=== PATIENT | male | born 1945 | race Caucasian/White ===

== ENCOUNTER 2017-10-16 10:25 | Inpatient (IN) | payer MEDICARE, OTHER ==
[~2017-10-16] VITALS: Ht 172.7 cm; Wt 81.6 kg
[~2017-10-16 10:25] MED LIST: BUPIVACAINE/PF 0.5% ONE; EPINEPHRINE 1 MG/ML, 1ML ONE; INDOCYANINE GREEN 25 MG VIAL ONE
[2017-10-16 10:50] VITALS: BP 146/93
[2017-10-16] MEDS ORDERED: LACTATED RINGERS 1,000 ML IV SCH (10:52)
[2017-10-16] MEDS ORDERED: PLEASE ENTER HEIGHT AND WEIGHT MC SCH (11:00)
[2017-10-16] MEDS ORDERED: WARF2TAB PO (11:20)
[2017-10-16] MEDS ORDERED: WARF4TAB PO (11:20)
[2017-10-16] MEDS ORDERED: METO25TA91 PO (11:20)
[2017-10-16 11:58] LABS: BASOPHILS # (AUTO) 0.04 x10^3/uL (0-0.1); BASOPHILS % (AUTO) 1 % (0-1); EOSINOPHILS # (AUTO) 0.07 x10^3/uL (0-0.4); EOSINOPHILS % (AUTO) 1 % (1-7); LYMPHOCYTES # (AUTO) 1.31 x10^3/uL (1-3.4); LYMPHOCYTES % (AUTO) 14 % (22-44); MD NO; MEAN CORPUSCULAR HEMOGLOBIN 24.1 pg (27.5-34.5); MEAN CORPUSCULAR HGB CONC 32.4 g/dL (33.2-36.2); MEAN CORPUSCULAR VOLUME 74.3 fL (81-97); MEAN PLATELET VOLUME 10.3 fL (7.4-10.4); MONOCYTES # (AUTO) 0.73 x10^3/uL (0.2-0.8); MONOCYTES % (AUTO) 8 % (2-9); NEUTROPHILS # (AUTO) 7.09 x10^3/uL (1.8-6.8); NEUTROPHILS % (AUTO) 77 % (42-75); PLATELET COUNT 315 x10^3/uL (130-400); RED BLOOD COUNT 5.92 x10^6/uL (4.38-5.82); RED CELL DISTRIBUTION WIDTH 17.5 % (9.4-14.8)
[2017-10-16 12:01] LABS: INTERNATIONAL NORMALIZED RATIO 1.1 (0.93-1.1); PROTHROMBIN TIME 11.4 Seconds (9.6-11.5)
[2017-10-16 12:04] LABS: ALANINE AMINOTRANSFERASE 14 U/L (12-78); ALBUMIN 3.7 g/dL (3.4-5.0); ANION GAP 8 mmol/L (5-15); CALCIUM 9.2 mg/dL (8.5-10.1); CHLORIDE 108 mmol/L (98-107); CREATININE 1.16 mg/dL (0.7-1.3)
[2017-10-16 12:06] LABS: ALKALINE PHOSPHATASE 91 U/L (45-117); BILIRUBIN,TOTAL 1.5 mg/dL (0.2-1.0); TOTAL PROTEIN 7.8 g/dL (6.4-8.2)
[2017-10-16] MEDS ORDERED: FENTANYL PF 250 MCG/5ML ONE (15:15)
[2017-10-16] MEDS ORDERED: MIDAZOLAM 1 MG/ML, 2ML ONE (15:15)
[2017-10-16] MEDS ORDERED: PROPOFOL 10 MG/ML, 20ML ONE (16:42)
[2017-10-16] MEDS ORDERED: SUCCINYLCHOLINE 20 MG/ML, 10ML ONE (16:42)
[2017-10-16] MEDS ORDERED: ROCURONIUM 10 MG/ML,10ML ONE (16:42)
[2017-10-16] MEDS ORDERED: NEOSTIGMINE 1 MG/ML, 10ML ONE (16:42)
[2017-10-16] MEDS ORDERED: LABETALOL 5MG/ML, 20ML ONE (16:42)
[2017-10-16] MEDS ORDERED: GLYCOPYRROLATE 0.2MG/1ML, 5ML ONE (16:42)
[2017-10-16] MEDS ORDERED: CEFOTETAN 2 GM ONE (16:42)
[2017-10-16] MEDS ORDERED: LABETALOL 5MG/ML, 20ML IV PRN (17:00)
[2017-10-16] MEDS ORDERED: OXYcodone 5 MG/5 ML ORAL.SOL UDC PO PRN (17:00)
[2017-10-16] MEDS ORDERED: ACETAMINOPHEN 325 MG TABLET PO PRN (17:00)
[2017-10-16] MEDS ORDERED: HYDROmorphone 1 MG/ML, 1ML IV PRN (17:00)
[2017-10-16] MEDS ORDERED: METOCLOPRAMIDE 5 MG/ML, 2ML IV PRN (17:00)
[2017-10-16] MEDS ORDERED: FENTANYL PF 100 MCG/2ML IV PRN (17:00)
[2017-10-16] MEDS ORDERED: ONDANSETRON 2MG/ML, 2ML IVPush PRN (17:00)
[2017-10-16] MEDS ORDERED: BUPIVACAINE/PF-EPI 0.5% 1:200K INFIL ONE (17:25)
[2017-10-16] MEDS ORDERED: hydrALAzine 20 MG/ML, 1ML ONE (19:26)
[2017-10-16] MEDS ORDERED: FENTANYL PF 100 MCG/2ML ONE (19:27)
[2017-10-16] MEDS ORDERED: MEPERIDINE/PF 50 MG/ML ONE (19:27)
[2017-10-16] MEDS: hydrALAzine 20 MG/ML, 1ML IV PRN ×2 (19:37→20:00)
[2017-10-16] MEDS ORDERED: ACETAMINOPHEN 650 MG/20.3 ML UDC ONE (20:13)
[2017-10-16] MEDS ORDERED: OXYcodone 5 MG/5 ML ORAL.SOL UDC ONE (20:13)
[2017-10-16] MEDS ORDERED: LORazepam 2 MG/ML, 1ML IVPush PRN (22:00)
[2017-10-16] MEDS ORDERED: DEXAMETHASONE 4 MG/ML, 1ML IVPush PRN (22:00)
[2017-10-16] MEDS ORDERED: LORazepam 1MG TABLET PO PRN (22:00)
[2017-10-16] MEDS ORDERED: CALCIUM CARBONATE 500 MG TAB.CHEW PO PRN (22:00)
[2017-10-16] MEDS ORDERED: ONDANSETRON 2MG/ML, 2ML IV PRN (22:00)
[2017-10-16] MEDS ORDERED: MORPHINE SULFATE 4 MG/ML, 1ML IVPush PRN (22:00)
[2017-10-16] MEDS ORDERED: TRAZODONE 50MG TABLET PO PRN (22:00)
[2017-10-16] MEDS ORDERED: DIPHENHYDRAMINE 50 MG/ML, 1ML IVPush PRN (22:00)
[2017-10-16] MEDS ORDERED: OXYcodone IR 5MG TABLET PO PRN (22:00)
[2017-10-16] MEDS ORDERED: DIPHENHYDRAMINE 25 MG CAPSULE PO PRN (22:00)
[2017-10-17] MEDS: KETOROLAC 30 MG/1 ML IVPush SCH ×4 (00:28→17:46)
[2017-10-17] MEDS: D5%-0.45NACL+KCL 20MEQ 1,000 ML IV SCH ×2 (00:28→10:45)
[2017-10-17 03:55] VITALS: BP 133/66
[2017-10-17 05:09] LABS: BASOPHILS # (AUTO) 0.08 x10^3/uL (0-0.1); BASOPHILS % (AUTO) 1 % (0-1); EOSINOPHILS % (AUTO) 0 % (1-7); LYMPHOCYTES # (AUTO) 0.95 x10^3/uL (1-3.4); LYMPHOCYTES % (AUTO) 6 % (22-44); MD NO; MEAN CORPUSCULAR HEMOGLOBIN 24.4 pg (27.5-34.5); MEAN CORPUSCULAR HGB CONC 32.5 g/dL (33.2-36.2); MEAN PLATELET VOLUME 10.3 fL (7.4-10.4); MONOCYTES # (AUTO) 0.84 x10^3/uL (0.2-0.8); MONOCYTES % (AUTO) 5 % (2-9); NEUTROPHILS # (AUTO) 14.13 x10^3/uL (1.8-6.8); NEUTROPHILS % (AUTO) 88 % (42-75); PLATELET COUNT 299 x10^3/uL (130-400); RED BLOOD COUNT 5.18 x10^6/uL (4.38-5.82); RED CELL DISTRIBUTION WIDTH 17.6 % (9.4-14.8)
[2017-10-17 05:14] LABS: ANION GAP 8 mmol/L (5-15); CALCIUM 8.5 mg/dL (8.5-10.1); CHLORIDE 109 mmol/L (98-107)
[2017-10-17 05:15] LABS: CREATININE 1.13 mg/dL (0.7-1.3)
[2017-10-17 05:59] VITALS: BP 119/71
[2017-10-17] MEDS: METOPROLOL SUCCINATE 25 MG TAB.ER.24H PO SCH (06:03)
[2017-10-17] MEDS: ENOXAPARIN 40 MG/0.4 ML SQ SCH (08:47)
[2017-10-17 12:15] VITALS: BP 154/78
[2017-10-17 13:51] VITALS: BP 181/84
[2017-10-17 19:56] VITALS: BP 158/77
[2017-10-18] MEDS: KETOROLAC 30 MG/1 ML IVPush SCH ×2 (00:07→05:52)
[2017-10-18 02:12] VITALS: BP 131/70
[2017-10-18 04:48] LABS: ANION GAP 9 mmol/L (5-15); CALCIUM 8.1 mg/dL (8.5-10.1); CHLORIDE 109 mmol/L (98-107)
[2017-10-18 04:54] LABS: BASOPHILS # (AUTO) 0.03 x10^3/uL (0-0.1); BASOPHILS % (AUTO) 0 % (0-1); EOSINOPHILS # (AUTO) 0.11 x10^3/uL (0-0.4); EOSINOPHILS % (AUTO) 1 % (1-7); LYMPHOCYTES # (AUTO) 1.49 x10^3/uL (1-3.4); LYMPHOCYTES % (AUTO) 15 % (22-44); MD NO; MEAN CORPUSCULAR HEMOGLOBIN 24.3 pg (27.5-34.5); MEAN CORPUSCULAR HGB CONC 32.4 g/dL (33.2-36.2); MEAN CORPUSCULAR VOLUME 75.1 fL (81-97); MEAN PLATELET VOLUME 10.6 fL (7.4-10.4); MONOCYTES # (AUTO) 0.88 x10^3/uL (0.2-0.8); MONOCYTES % (AUTO) 9 % (2-9); NEUTROPHILS # (AUTO) 7.78 x10^3/uL (1.8-6.8); NEUTROPHILS % (AUTO) 76 % (42-75); PLATELET COUNT 240 x10^3/uL (130-400); RED BLOOD COUNT 4.89 x10^6/uL (4.38-5.82); RED CELL DISTRIBUTION WIDTH 17.7 % (9.4-14.8)
[2017-10-18] MEDS: METOPROLOL SUCCINATE 25 MG TAB.ER.24H PO SCH (05:52)
[2017-10-18 07:30] VITALS: BP 104/60
[2017-10-18] MEDS: ENOXAPARIN 40 MG/0.4 ML SQ SCH (09:00)
[2017-10-18] MEDS ORDERED: OXYC-302 PO (09:54)
== END 2017-10-18 10:52 | disposition home or self-care (01) | DRG 330 ==
LOC: ORIP 10:25 → 4NOR 20:40
PROVIDERS: ADMIT Colon & Rectal Surgery; ATTEND Colon & Rectal Surgery
PROC: 0DBP0ZZ Excision of Rectum, Open Approach (ICD-10-PCS; 2017-10-16)
PROC: 8E0W0CZ Robotic Assisted Procedure of Trunk Region, Open Approach (ICD-10-PCS; 2017-10-16)
PROC: 0DJD8ZZ Inspection of Lower Intestinal Tract, Via Natural or Artificial Opening Endoscopic (ICD-10-PCS; 2017-10-16)
PROC: 0DBN0ZZ Excision of Sigmoid Colon, Open Approach (ICD-10-PCS; principal; 2017-10-16 14:30)
DX: D12.7 Benign neoplasm of rectosigmoid junction (principal); R71.0 Precipitous drop in hematocrit; Z72.89 Other problems related to lifestyle
CPT/HCPCS: 36415; 80048; 80053; 83735; 85025; 85610; 85730; 86850; 86900; 88309; 93005; C1729; J0171; J1650; J1885; J2250; J2704; J2710; J3010; J3490; J0330; J0360; J3480; J7120; S0074